=== PATIENT | male | born 1955 | race Caucasian/White ===

== ENCOUNTER 2016-08-29 06:55 | Emergency (ER) | payer OTHER ==
[2016-08-29] MEDS ORDERED: Ketorolac 30 MG/ML SDV IVPUSH ONE (07:40)
[2016-08-29] MEDS ORDERED: Tamsulosin 0.4 MG Cap.ER PO ONE (07:41)
--- NOTE | 2016-08-29 08:00 | EDM.PDOC ---
ED HPI GENERAL MEDICAL PROBLEM - General Chief Complaint: General Stated Complaint: LLQ/Flank pain Time Seen by Provider: 08/29/16 07:35 Source of Information: Reports: Patient History Limitations: Reports: No Limitations - History of Present Illness INITIAL COMMENTS - FREE TEXT/NARRATIVE: Patient is a 61-year-old gentleman who is seen in the emergency room with chief complaint of left lower quadrant pain states that about 5 days ago started having twinges of pain in the left lower quadrant and CVA area left side the pain was described as it would comfortably while in the but the day prior to arrival to the ER the pain intensified and was prolonged so patient came in for evaluation in the morning [facility] ER/Plan at this time a CT of the abdomen was obtained which revealed a stone in the distal ureter near the ear a few the junction at this time the stone measured about 4 mm diagnosis nephrolithiasis Plan patient will still be followed by primary physician started on Toradol 10 mg 1 tablet every 6 hours by mouth Septra DS 1 tablet twice a day plus Flomax 0.4 mg 1 tablet by mouth daily patient is to return to the emergency room if pain becomes uncontrollable. Patient is also to take liquids like Gatorade or water thank you Onset: Gradual Duration: Day(s):, Getting Worse Location: Reports: Abdomen, Back, Pelvis Quality: Reports: Ache, Stabbing Severity: Moderate Improves with: Reports: None Worsens with: Reports: Movement Context: Reports: Sick Contact Associated Symptoms: Reports: No Other Symptoms LLQ pn/Lft flank Pain Score (Numeric/FACES): 9 - Related Data Allergies Allergy/AdvReac Type Severity Reaction Status Date / Time No Known Allergies Allergy Verified 08/29/16 07:12 Home Meds: Home Meds Aspirin [Children's Aspirin] 81 mg PO DAILY 08/29/16 [History] Cyanocobalamin (Vitamin B12) [Vitamin B12] 1,000 mcg PO DAILY 08/29/16 [History] Fish Oil/[place]-3 Fatty Acids [Fish Oil 1,000 MG] 1,000 mg PO DAILY 08/29/16 [ History] Ginkgo Biloba Extract [Ginkgo Biloba] 120 mg PO DAILY 08/29/16 [History] Gluc 2KCl/Chondr/Celena Hy/Hy Ac [Glucosamine & Chondroitin Cap] 1 tab PO DAILY [History] Ketorolac [Toradol] 10 mg PO Q6H #20 tablet 08/29/16 [Rx] Multivitamins [Tab-A-Eliseo] 1 tab PO DAILY 08/29/16 [History] Niacin 500 mg PO DAILY 08/29/16 [History] Sulfamethoxazole/Trimethoprim [Septra DS] 1 tab PO BID #20 tablet 08/29/16 [Rx] Tamsulosin HCl [Flomax] 0.4 mg PO BEDTIME #10 cap.er.24h 08/29/16 [Rx] Zinc 50 mg PO DAILY 08/29/16 [History] Social & Family History - Tobacco Use Smoking Status *Q: Former Smoker Years of Tobacco use: 4 Packs/Tins Daily: 0.2 Used Tobacco, but Quit: No Second Hand Smoke Exposure: No - Recreational Drug Use Recreational Drug Use: No ED ROS GENERAL - Review of Systems Review Of Systems: See Below Constitutional: Reports: No Symptoms HEENT: Reports: Other (Tendinitis) Respiratory: Reports: No Symptoms Cardiovascular: Reports: No Symptoms Endocrine: Reports: No Symptoms GI/Abdominal: Reports: Abdominal Pain : Reports: No Symptoms Musculoskeletal: Reports: No Symptoms Skin: Reports: No Symptoms Neurological: Reports: No Symptoms Psychiatric: Reports: No Symptoms Hematologic/Lymphatic: Reports: No Symptoms Immunologic: Reports: No Symptoms ED EXAM, GENERAL - Physical Exam Exam: See Below Exam Limited By: No Limitations General Appearance: Alert, WD/WN, No Apparent Distress Ears: Normal External Exam, Normal Canal, Hearing Grossly Normal, Normal TMs, Other (Tinnitus) Nose: Normal Inspection, Normal Mucosa, No Blood Throat/Mouth: Normal Inspection, Normal Lips, Normal Teeth, Normal Gums, Normal Oropharynx, Normal Voice, No Airway Compromise Head: Atraumatic, Normocephalic Neck: Normal Inspection, Supple, Non-Tender, Full Range of Motion Respiratory/Chest: No Respiratory Distress, Lungs Clear, Normal Breath Sounds, No Accessory Muscle Use, Chest Non-Tender Cardiovascular: Normal Peripheral Pulses, Regular Rate, Rhythm, No Edema, No Gallop, No JVD, No Murmur, No Rub GI/Abdominal: Normal Bowel Sounds, Soft, No Organomegaly, No Distention, No Abnormal Bruit, No Mass, Tender (Left lower quadrant) (Male) Exam: Deferred Rectal (Males) Exam: Deferred Back Exam: CVA Tenderness (L) Extremities: Normal Inspection, Pedal Edema Neurological: Alert, Oriented, CN II-XII Intact, Normal Cognition, Normal Gait, Normal Reflexes, No Motor/Sensory Deficits Psychiatric: Normal Affect, Normal Mood Course - Vital Signs Last Recorded V/S: Last Vital Signs Temp 98.0 F 08/29/16 06:58 Pulse 68 08/29/16 06:58 Resp 22 H 08/29/16 06:58 BP 167/84 H 08/29/16 06:58 Pulse Ox 99 08/29/16 06:58 - Orders/Labs/Meds Orders: Active Orders 24 hr Category Date Time Status Abdomen Pelvis wo Cont [CT] Stat Exams 08/29/16 07:13 Taken BASIC METABOLIC PANEL,BMP [CHEM] Stat Lab 08/29/16 08:32 Ordered CBC WITH AUTO DIFF [HEME] Stat Lab 08/29/16 08:32 Ordered Labs: Laboratory Tests 08/29/16 Range/Units 07:13 Specimen Type Urincc Urine Color Yellow Urine Appearance Clear Urine pH 5.5 (5.0-9.0) Ur Specific [place] 1.015 (1.005-1.030) Urine Protein Negative (NEGATIVE) mg/dL Urine Glucose (UA) Negative (NEGATIVE) mg/dL Urine Ketones Negative (NEGATIVE) mg/dL Urine Occult Blood Moderate H (NEGATIVE) Urine Nitrite Negative (NEGATIVE) Urine Bilirubin Negative (NEGATIVE) Urine Urobilinogen 0.2 (0.2-1.0) E.U./dL Ur Leukocyte Esterase Negative (NEGATIVE) Urine RBC 20-30 H /HPF Urine WBC 0-5 /HPF Ur Epithelial Cells Few /LPF Urine Bacteria Not seen (NONE TO FEW) /HPF Meds: Medications Discontinued Medications Generic Name Dose Route Start Last Admin Trade Name Freq PRN Reason Stop Dose Admin Ketorolac Tromethamine 30 mg 08/29/16 07:40 08/29/16 07:44 Toradol IVPUSH 08/29/16 07:41 30 mg ONETIME ONE Administration Tamsulosin HCl 0.4 mg 08/29/16 07:41 08/29/16 07:48 Flomax PO 08/29/16 07:42 0.4 mg ONETIME ONE Administration Departure - Departure Time of Disposition: 08:43 Disposition: DC/Tfer to SNF 03 Condition: Fair Clinical Impression: Nephrolithiasis - Discharge Information Prescriptions: Ketorolac [Toradol] 10 mg PO Q6H #20 tablet Sulfamethoxazole/Trimethoprim [Septra DS] 1 tab PO BID #20 tablet Tamsulosin HCl [Flomax] 0.4 mg PO BEDTIME #10 cap.er.24h Instructions: Kidney Stones, Ketorolac injection, Flank Pain, [id number], Tamsulosin capsules Referrals: PCP,Not In Area [Primary Care Provider] - Forms: ED Department Discharge - My Orders Last 24 Hours: My Active Orders 08/29/16 07:13 Abdomen Pelvis wo Cont [CT] Stat 08/29/16 08:32 BASIC METABOLIC PANEL,BMP [CHEM] Stat CBC WITH AUTO DIFF [HEME] Stat - Assessment/Plan Last 24 Hours: My Active Orders 08/29/16 07:13 Abdomen Pelvis wo Cont [CT] Stat 08/29/16 08:32 BASIC METABOLIC PANEL,BMP [CHEM] Stat CBC WITH AUTO DIFF [HEME] Stat
[2016-08-29 09:19] LABS: CHLORIDE,CL 110 mmol/L (98-107); SODIUM,NA 143 mmol/L (136-145)
[2016-08-29 18:50] VITALS: BP 152/68
== END 2016-08-29 09:33 | disposition home or self-care (01) ==
LOC: LL.ED 06:55
DX: N13.2 Hydronephrosis with renal and ureteral calculous obstruction (principal); Z79.82 Long term (current) use of aspirin; Z79.899 Other long term (current) drug therapy; Z87.891 Personal history of nicotine dependence
CPT/HCPCS: 36415; 74176; 80048; 81001; 85025; 96374; 99284; A9270; J1885